=== PATIENT | male | born 1945 | race Caucasian/White ===

== ENCOUNTER → 2016-06-27 | Outpatient (CLI) | payer OTHER ==
[~2016-06-27] MED LIST: ASPEC325 PO; LSN/10125 PO; NAPR1TAB9 PO; SILD100T PO
[2016-06-27 12:09] LABS: HEMATOCRIT 47.8 % (42-52); MEAN CORPUSCULAR HEMOGLOBIN 31.5 pg (25-34); MEAN CORPUSCULAR HGB CONC 34.9 g/dl (32-36); MEAN PLATELET VOLUME 10.2 fL (7.4-10.4); PLATELET COUNT 318 K/uL (130-400); RED BLOOD COUNT 5.31 M/uL (4.7-6.1); WHITE BLOOD COUNT 9.38 K/uL (4.8-10.8)
[2016-06-27 12:39] LABS: ALT/SGPT 19 U/L (12-78); BLOOD UREA NITROGEN 23 mg/dl (7-18); BUN/CREATININE RATIO 14.1 (10-20); CALCIUM 8.9 mg/dl (8.5-10.1); CARBON DIOXIDE 27 mmol/L (21-32); CHLORIDE 104 mmol/L (98-107); GLUCOSE 82 mg/dl (70-99); POTASSIUM 4.4 mmol/L (3.5-5.1); SODIUM 138 mmol/L (136-145)
[2016-06-27 12:47] LABS: CHOLESTEROL 208 mg/dl (0-200); HDL CHOLESTEROL 42 mg/dl; LDL CHOLESTEROL CALCULATED 138 mg/dl; TRIGLYCERIDES 138 mg/dl (0-150); VERY LOW DENSITY LIPOPROT CALC 28 mg/dl
== END | disposition home or self-care (01) ==
LOC: C.LAB 11:15
PROVIDERS: ATTEND Family Medicine
DX: I10 Essential (primary) hypertension (principal); E78.5 Hyperlipidemia, unspecified; Z12.5 Encounter for screening for malignant neoplasm of prostate

== ENCOUNTER → 2017-06-28 | Day surgery (SDC) | payer OTHER ==
[2017-06-26 11:21] VITALS: Ht 190.5 cm; Wt 102.3 kg
[~2017-06-28] VITALS: Ht 190.5 cm; Wt 102.3 kg
[~2017-06-28] MED LIST changes: -ASPEC325 PO; +LIDOCAINE HCL 2% 2 ML VIAL (20MG/ML) ONE; +MIDAZOLAM HCL 1 MG/ML 2ML VIAL ONE; -NAPR1TAB9 PO; +PROPOFOL IV EMULSION 10 MG/ML 20 ML VIAL IV ONE; -SILD100T PO; +SODIUM CHLORIDE 0.9% 500ML 500 ML IV ONE
--- NOTE | 2017-06-28 10:51 | Endo History and Physical ---
History & Physical Date of Service: Jun 28, 2017. Chief Complaint: history of polyps Referring Physician: Dr. Bharath Carrillo History of Present Illness Surveillance colonoscopy Past Medical History Fractures, Hypertension Past Surgical History Hx Cardiac Surgery: No Hx Internal Defibrillator: No Hx Pacemaker: No Hx Abdominal Surgery: No Hx Post-Op Nausea and Vomiting: No Hx Cancer Surgery: No Hx Thoracic Surgery: No Hx Orthopedic: Yes (LEFT KNEE SURGERY, LEFT TKA) Hx Urinary Tract Surgery: No Family History None Social History Smoking Status: Former Smoker Hx Substance Use: No Hx Alcohol Use: Yes (5 DRINKS/WEEK) Allergies Coded Allergies: No Known Allergies (Verified , 06/28/17) Current Medications Reported Home Medications Medications Dose Route/Sig Max Daily Dose Days Date Category Lisinopril/Hctz 10/12.5 Mg (HCTZ/Lisinopril) 1 Ea Tab 1 Tab PO HS 12/17/13 Reported Vital Signs Weight (Kilograms): 102.27 Height (Feet): 6 Height (Inches): 3 Date Time Temp Pulse Resp B/P (MAP) Pulse Ox O2 Delivery O2 Flow Rate FiO2 06/28/17 09:53 36.5 87 18 126/78 (94) 95 Room Air Physical Exam General Appearance: WD/WN, no apparent distress Respiratory/Chest: Auscultation: breath sounds normal, no wheezing Cardiovascular: Heart Auscultation: RRR, no murmurs Assessment and Plan Colonoscopy today.
--- NOTE | 2017-06-28 11:22 | GI REPORT ---
Procedure Date: 06/28/2017 10:52 AM Procedure: Colonoscopy Indications: High risk colon cancer surveillance: Personal history of colonic polyps Medicines: Monitored Anesthesia Care Complications: No immediate complications. Estimated blood loss: None. Estimated Blood Loss: Estimated blood loss: none. Procedure: Pre-Anesthesia Assessment: - Prior to the procedure, a History and Physical was performed, and patient medications, allergies and sensitivities were reviewed. The patient's tolerance of previous anesthesia was reviewed. - ASA Grade Assessment: II - A patient with mild systemic disease. After I obtained informed consent, the scope was passed under direct vision. Throughout the procedure, the patient's blood pressure, pulse, and oxygen saturations were monitored continuously. The scope was introduced through the anus and advanced to the terminal ileum, with identification of the appendiceal orifice and IC valve. The colonoscopy was performed with ease. The patient tolerated the procedure well. The quality of the bowel preparation was good. The bowel preparation used was split dose MIralax. Findings: Multiple diverticula were found in the left colon. Internal hemorrhoids were found during retroflexion. Impression: - Diverticulosis in the left colon. - Internal hemorrhoids. - No specimens collected. - The colon was otherwise normal to the terminal ileum with retroflexed views of the ascending colon and rectum. Recommendation: - Repeat colonoscopy in 5 years for screening purposes. - Discharge patient to home (with escort). Javid Garrett M.D. Javid Garrett MD 06/28/2017 11:22:19 AM This report has been signed electronically. Note Initiated On: 06/28/2017 10:52 AM I attest to the content of the Intraoperative Record and orders documented therein, exceptions below
--- NOTE | 2017-06-28 11:23 | Discharge Instructions ---
Endoscopy Patient Instructions Date / Procedure(s) Performed Jun 28, 2017. Colonoscopy Allergy Information Coded Allergies: No Known Allergies (Verified , 06/28/17) Discharge Date / Findings Jun 28, 2017. Diverticulosis, internal hemorrhoids Medication Instructions Restart Stopped Medication(s): Restart all medications today. Provider Instructions Activity Restrictions - No exercising or heavy lifting for 24 hours. - Do not drink alcohol the day of the procedure. - Do not drive a car or operate machinery until the day after the procedure. - Do not make any important decisions or sign important papers in 24 hours after the procedure. Following Day: - Return to full activity which may include returning to work/school. Diet Start your diet with liquids and light foods (jello, soup, juice, toast). Then eat your usual diet if not nauseated. Treatment For Common After Affects For mild abdominal pain, bloating, or excessive gas: - Rest - Eat lightly - Lie on right side Follow-Up Information Follow-up with Dr. Bharath Carrillo as scheduled Repeat colonoscopy in five years. Anesthesia Information What You Should Know You have had a procedure that required some medicine to reduce anxiety and discomfort. This treatment is called moderate sedation. After receiving the treatment, you may be sleepy, but you will be able to breathe on your own. The effects of the treatment may last for several hours. Follow these instructions along with Activity/Diet recommendations noted above: * Do NOT do anything where dizziness or clumsiness would be dangerous. * Rest quietly at home today, then you can be up and about tomorrow. * Have a responsible person stay with you the rest of today. * You may have had an I.V. today. If so, you may take the dressing off later today. Recommendations Call your doctor if: * Trouble breathing * Continuous vomiting for more than 24 hours * Temperature above 101 degrees * Severe abdominal pain or bloating * Pain not relieved by pain medicine ordered * There is increased drainage or redness from any incision * A large amount of rectal bleeding greater than 2-3 tablespoons. (If you had a polyp/s removed or have hemorrhoids, a small amount of blood - from the rectum is to be expected.) * You have any unanswered questions or concerns. IN THE EVENT OF A SERIOUS EMERGENCY, GO TO THE NEAREST EMERGENCY ROOM Your discharge instructions were prepared by provider Javid L Tami. Patient Instructions Signature Page Medardo Marcelo Patient (or Guardian) Signature/Date: I have read and understand the instructions given to me by my caregivers. Caregiver/RN/Doctor Signature/Date: The above-named patient and/or guardian has received patient instructions on this date. + Original Patient Signature Page (only) stays with chart. Please make copy for patient.
[2017-06-28 11:54] VITALS: BP 144/66; PULSE 77; O2SAT 97
--- NOTE | 2017-06-28 12:12 | Anesthesiology Progress Note ---
Anesthesia Post Op Note Date & Time Jun 28, 2017 at 12:12 Vital Signs Pain Intensity: 0 Vital Signs Past 12 Hours Date Time Temp Pulse Resp B/P (MAP) Pulse Ox O2 Delivery O2 Flow Rate FiO2 06/28/17 11:54 77 16 144/66 (92) 97 Room Air 06/28/17 11:39 81 18 116/64 (81) 96 Room Air 06/28/17 11:22 82 18 113/70 (84) 96 Room Air 06/28/17 09:53 36.5 87 18 126/78 (94) 95 Room Air Notes Mental Status: alert / awake / arousable, participated in evaluation Pt Amnestic to Procedure: Yes Nausea / Vomiting: adequately controlled Pain: adequately controlled Airway Patency, RR, SpO2: stable & adequate BP & HR: stable & adequate Hydration State: stable & adequate Anesthetic Complications: no major complications apparent
== END | disposition home or self-care (01) ==
LOC: C.GI 09:32
PROVIDERS: ATTEND Internal Medicine Gastroenterology
DX: Z12.11 Encounter for screening for malignant neoplasm of colon (principal); K57.30 Diverticulosis of large intestine without perforation or abscess without bleeding; K64.8 Other hemorrhoids; Z86.010 Personal history of colon polyps; I10 Essential (primary) hypertension; M19.90 Unspecified osteoarthritis, unspecified site; Z96.652 Presence of left artificial knee joint; Z87.891 Personal history of nicotine dependence; Z90.89 Acquired absence of other organs

== ENCOUNTER 2021-08-17 08:41 | Observation (INO) ==
--- NOTE | 2021-08-12 16:24 | Anesthesiology Consultation ---
Date of Service August 12, 2021 Assessment & Plan (1) Encounter for pre-operative examination: COVID screening: Per assessment on 08/12: No known COVID-19 positive contacts or current COVID-19 related symptoms. Travel screen negative. Surgeon arranging preop COVID testing. Awaiting results. Chart Review Chart Review: Acceptable Risk for Surgery and Patient NOT seen in Pre Admission Testing History Surgery Operation Date: 08/17/21 08:50 Proposed Procedures p Left Total Knee Revision - Alex Cordova MD Height/Weight Height: 6 ft 1 in Weight: 95.254 kg Allergies Allergy/AdvReac Type Severity Reaction Status Date / Time amoxicillin AdvReac Nausea Verified 08/12/21 13:52 Medications Home Medications Medication Instructions Recorded Confirmed Last Taken acetaminophen 325 mg capsule 325 mg PO QID PRN 07/08/19 08/12/21 Unknown lisinopril 5 mg tablet 5 mg PO QPM 12/29/20 08/12/21 Unknown Past Medical History Medical History Chronic back pain CKD (chronic kidney disease) Stage III, baseline creatinine 1.5-1.7 per [facility] records chart review Hearing deficit Hyperlipidemia Hypertension Osteoarthritis Past Family History Family History Other Heart disease Past Surgical History Surgical History (Updated 08/12/21 @ 13:54 by Valorie Key, RN) History of colonoscopy w/ polypectomy History of surgery Decompression ulnar nerve cubital tunnel, right elbow (03/06/18): LMA#5 attempt x1, atraumatic History of tonsillectomy History of tooth extraction History of total knee replacement Left TKA (01/28/14): SAB x1 attempt (at L3/L4) + PNB at [facility] S/P epidural steroid injection Social History Smoking Status: Never smoker Do You Dip or Chew Tobacco: No Hx Alcohol Use: Yes Alcohol type: wine alcohol intake frequency: holidays/special occasions only Hx Substance Use: No substance use type: does not use Lab Results Anesthesia Preop Results Results Anesthesia Widget: WBC 7.39 K/uL (4.8-10.8) 07/05/21 Hgb 16.3 g/dL (14.0-18.0) 07/05/21 Hct 49.6 % (42-52) 07/05/21 Plt 362 K/uL (130-400) 07/05/21 Na 140 mmol/L (136-145) 07/05/21 K 4.4 mmol/L (3.5-5.1) 07/05/21 Cl 104 mmol/L (98-107) 07/05/21 CO2 29 mmol/L (21-32) 07/05/21 BUN 21 mg/dl (6-23) 07/05/21 Creat 1.41 mg/dl (0.6-1.4) H 07/05/21 Glucose Level 77 mg/dl (70-99(Fasting)) 07/05/21 PT 10.9 Seconds (9.0-12.0) 07/05/21 INR 1.0 (0.9-1.1) 07/05/21 Blood Type A Negative 07/05/21 Antibody Screen NEGATIVE 07/05/21 Testing Electrocardiogram Date: 01/12/21 NSR at 78bpm. Chest X-Ray Date: 01/12/21 Findings:+ NAD
[~2021-08-17 08:41] MED LIST changes: +ACETAMINOPHEN 500 MG TAB PO SCH; +BUPIVACAINE 0.25% 30 ML VIAL ONE; +BUPIVACAINE 0.5 % 5 MG/1 ML PF 10ML VIAL ONE; +BUPIVACAINE LIPOSOME/PF 266 MG, BUPIVACAINE/EPINEPHRINE 50 ML, SODIUM CHLORIDE 0.9% 30 ... INFIL SCH; +DEXAMETHASONE SOD INJ 4 MG/ML VIAL ONE; +EPINEPHrine INJ 1 MG/ML AMP ONE; +FAMOTIDINE 20 MG TAB PO SCH; +GABAPENTIN 300 MG CAP PO SCH; -LIDOCAINE HCL 2% 2 ML VIAL (20MG/ML) ONE; +LR 500ML BOLUS, THEN 15ML/HR IV SCH; +LR 60ML/HR IV SCH; -LSN/10125 PO; +METOCLOPRAMIDE HCL 10 MG TABLET PO SCH; -MIDAZOLAM HCL 1 MG/ML 2ML VIAL ONE; -PROPOFOL IV EMULSION 10 MG/ML 20 ML VIAL IV ONE; -SODIUM CHLORIDE 0.9% 500ML 500 ML IV ONE; +TRANEXAMIC ACID 1,000 MG **IV Intra-op IV SCH; +ceFAZolin 2000MG 2,000 MG/15 ML SYR IV SCH
--- NOTE | 2021-08-17 08:55 | History & Physical Bridge Note ---
Date of Service August 17, 2021 History & Physical Bridge Note I have examined the patient, reviewed the History & Physical and in the interval since the performance of the History & Physical I have noted the following changes of clinical significance: no changes noted
[2021-08-17] MEDS ORDERED: MIDAZOLAM HCL 1 MG/ML 2ML VIAL ONE (09:32)
[2021-08-17] MEDS ORDERED: fentaNYL citrate 100 MCG/2 ML VIAL ONE (09:32)
[2021-08-17] MEDS ORDERED: KETAMINE 50 MG/5 ML SYRINGE ONE (09:32)
[2021-08-17] MEDS ORDERED: DEXAMETHASONE SOD INJ 4 MG/ML VIAL ONE (10:19)
[2021-08-17] MEDS ORDERED: LIDOCAINE 2% 2 ML VIAL/AMP(20MG/ML) INFIL ONE (10:19)
[2021-08-17] MEDS ORDERED: PROPOFOL IV EMULSION 10 MG/ML 20 ML VIAL IV ONE (10:19)
[2021-08-17] MEDS ORDERED: KETOROLAC 30 MG/ML VIAL ONE (10:19)
[2021-08-17] MEDS ORDERED: ONDANSETRON INJ 2 MG/ML 2 ML VIAL ONE (10:19)
[2021-08-17] MEDS ORDERED: GLYCOPYRROLATE 0.2 MG/ML VIAL ONE (10:19)
[2021-08-17] MEDS ORDERED: SODIUM CHLORIDE 0.9% PF 50 ML VIAL ONE (10:44)
[2021-08-17] MEDS ORDERED: BUPIVACAINE/EPINEPHRINE 0.25% 1:200,000 30 ML VIAL ONE (10:44)
[2021-08-17] MEDS ORDERED: BUPIVACAINE LIPOSOME 1.3% 266 MG/20 ML VIAL ONE (10:44)
[2021-08-17] MEDS ORDERED: VANCOMYCIN HCL 1000MG/20ML VIAL ONE ×2 (11:08→11:11)
--- NOTE | 2021-08-17 13:47 | Operative Report ---
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 He had some mild synovitis. He had obvious loosening of the femoral component. The tibial component and the patella component looks to be well preserved without significant polywear or signs of looseness or significant osteolysis. There was moderate osteolysis of the distal femur. Fluids 1500 cc Specimens Left knee synovium sent for frozen section which revealed 0 polys per high-power field. Joint fluid sent for stat gram stain aerobic and anaerobic culture. Anesthesia Type Spinal MAC Complications none Disposition Accompanied Patient To Recovery: No Indications Patient is 75-year-old very active gentleman who is now about 7 and half years out from left knee replacement. He did well for the first 5 years and then injured his knee when he fell off a tractor and twisted his knee. He said recurrent swelling ever since. Was diagnosed with a loose femoral component. He had 3 extensive infectious work-ups which were all negative. He is putting up with this over the past several years but is now decided to have this fixed. He was scheduled previously and canceled due to the COVID epidemic. Description of Procedure Operative implants consist of: 1. Biomet Vanguard III 60 size 70 left posterior stabilized femoral component with a 21 x 80 mm offset stem with a 2.5 mm offset along with a 5 mm distal medial augment and a 5 mm posterior lateral augment. The patient was taken to the operating, identified, and placed on the operating table supine position protectors were properly padded. IV antibiotics tried by anesthesia team. A spinal anesthetic of been implemented holding area. Brooks cath was placed in sterile fashion the left atrium was then placed in the left lower extremities then prepped and draped in usual sterile fashion. The left leg was elevated exsanguinated with use of an Esmarch and tourniquet placed at 300 mmHg. An anterior posterior left knee was then performed to longitudinal incision made using the previous incision site. Sharp dissection was carried through subcutaneous tissue down to the extensor mechanism. A medial parapatellar arthrotomy incision was made. Subperiosteal dissection was carried out medially. I suprapatellar pouch and medial lateral gutter synovectomy was then performed. The synovium was sent for pathology which revealed 0 polys per high-power field. We also sent some fluid for stat gram stain aerobic anaerobic culture. The patella was subluxated laterally the knee was flexed. I then examined the tibial component was well fixed. We did remove the tibial polyethylene. I then examined the femoral component it was grossly loose. I took an osteotome and tapped it off. I examined the knee and no felt the tibia was well fixed along with the patella and we would just proceed with femoral revision. The distal femur was then with a sharp drop with intramedullary canal was suction. We reamed up to a size 21. The distal femoral cutting guide was placed at 5 degrees. It was pinned in place. We took a 1 mm cut off laterally and a 5 mm cut off medially. I sized the knee to a size 70. The AP cutting block was then used with the intramedullary stem in place with a 2.5 mm offset. Was pinned in place. The anterior cut, anterior chamfer, posterior cuts, posterior chamfer cuts were made. The box cutting guide was then placed and the box cut was made. I then cut for the posterior lateral augment of 5 mm. The implant was then assembled.. Trial implant was placed and fit quite nicely. We then trialed the knee and the 14 mm insert fit most appropriately. Attention drawn to place the permanent components. All trial components were removed. I irrigated the wound extensively. We spent quite a bit of time cleaning up the distal femur and curetting any soft tissue out of the bone. A double batch Palacos G cement was mixed with an additional gram of vancomycin. The femoral component was then placed cement into the metaphysis along with the surface. Once the cement hardened the final cement check was then performed. We then changed out the temporary poly for the permanent 14 mm polyethylene. Attention drawn towards closing. The wound was irrigated With Pulsatile Lavage Solution. I Did Inject Locally with 100 Cc of Combination of 20 Cc of Exparel, 30 Cc Normal Saline, 50 Cc of Quarter Percent Marcaine with Epinephrine. Patient Did Receive 1 G Tranexamic Acid. The Tourniquet Was Then Let down for Final Tourniquet Time 95 Minutes. Hemostasis Reduced Electrocautery. Extensor Mechanism Closed with Combination 1 PDS Suture #1 Vicryl Suture in a [id number] Fashion. Extensor Mechanism Checked to Be Intact with the Subcutaneous Tissues Then Closed with 2 Dexon Suture in a Buried Interrupted Fashion Skin Was Closed Skin Katheryn. Leg Was Then Cleaned and Dried and a Sterile Dressing with Xeroform, 4 Fours, Sterile Cast Padding, Tony Bandage Were Applied. The Patient Then Transferred to the Recovery Room in Stable Condition. Patient Tolerated Procedure Well and There Were No Complications. Chester Jaramillo, my physician commercial assistant, was present for the entire procedure. His assistance was essential and required for appropriate patient positioning, prepping and draping, surgical exposure, performing the technical details of the operation, placement the implants, closure of the wound, and placement of the sterile bandage. I attest to the content of the Intraoperative Record and any orders documented therein. Any exceptions are noted below.
[2021-08-17] MEDS ORDERED: METOCLOPRAMIDE HCL INJ 5 MG/ML 2 ML VIAL IV PRN (14:44)
[2021-08-17] MEDS ORDERED: ONDANSETRON INJ 2 MG/ML 2 ML VIAL IV PRN (14:44)
[2021-08-17] MEDS ORDERED: ALUMINUM/MAGNESIUM SUSP 30 ML UDC PO PRN (14:44)
[2021-08-17] MEDS ORDERED: HYDROmorphone INJ 0.5 MG/0.5 ML SYR IV PRN (14:44)
[2021-08-17] MEDS ORDERED: MAGNESIUM HYDROXIDE SUSP 30 ML UDC PO PRN (14:44)
[2021-08-17] MEDS ORDERED: bisacodyL 10 MG SUPP PR PRN (14:44)
[2021-08-17] MEDS ORDERED: NALOXONE HCL 0.4 MG/1 ML VIAL/CARP IV PRN (14:44)
--- NOTE | 2021-08-17 14:54 | XRay Report ---
XR knee LT 1 or 2V routine HISTORY: 75 years-old Male Surgical Post Op left knee total joint arthroplasty COMPARISON: Knee radiographs 07/29/2021 TECHNIQUE: 2 views of the left knee FINDINGS: Total joint arthroplasty with patellar resurfacing. Anterior midline skin austen are noted along wit h expected postoperative soft tissue swelling and deep tissue air. No acute fracture or unexpected op aque foreign body. IMPRESSION: Left knee total joint arthroplasty with expected postoperative changes. ACT 112: Negative or not required by law. The above report was generated using voice recognition software. It may contain grammatical, syntax o r spelling errors. Electronically signed by: Sean Wilkinson M.D. 08/17/2021 2:53 PM
[2021-08-17] MEDS: SODIUM CHLORIDE 0.9% 1000ML 1,000 ML IV SCH ×2 (15:06→23:57)
[2021-08-17] MEDS: ACETAMINOPHEN 500 MG TAB PO SCH ×2 (15:09→22:04)
--- NOTE | 2021-08-17 15:57 | Anesthesiology Progress Note ---
Date of Service August 17, 2021 Anesthesia Post Procedure Vital Signs Vital Signs: Temp Pulse Resp BP Pulse Ox 08/17/21 15:40 72 16 104/64 98 08/17/21 15:10 36.3 C L 78 16 108/61 96 08/17/21 14:40 36.4 C L 70 16 99/61 L 94 08/17/21 14:25 75 16 95/59 L 95 08/17/21 14:15 36.2 C L 82 19 103/60 96 08/17/21 14:05 73 18 97/65 L 96 08/17/21 13:55 87 18 96/50 L 96 08/17/21 13:45 92 H 16 115/58 L 92 08/17/21 13:35 36.6 C 100 H 18 112/55 L 96 08/17/21 09:17 36.3 C L 89 18 131/79 97 Transfer of Care Handoff Completed per policy Notes Mental Status: alert / awake / arousable Patient Amnestic to Procedure: Yes Nausea / Vomiting: adequately controlled Pain: adequately controlled Airway Patency, RR, SpO2: stable & adequate BP & HR: stable & adequate Hydration State: stable & adequate Anesthetic Complications: no major complications apparent
[2021-08-17] MEDS: ASCORBIC ACID 500 MG TAB PO SCH (16:24)
[2021-08-17] MEDS ORDERED: TRANEXAMIC ACID / 0.7% NACL 1,000 MG/100 ML BAG IV SCH (19:45)
[2021-08-17] MEDS ORDERED: lisinopril 5 MG TAB PO SCH (21:00)
[2021-08-17] MEDS ORDERED: SENNA 8.6 MG TAB PO SCH (21:00)
[2021-08-17] MEDS: ceFAZolin 2000MG 2,000 MG/15 ML SYR IV SCH (21:26)
[2021-08-17] MEDS: ASPIRIN 81 MG ECTAB PO SCH (21:36)
[2021-08-17] MEDS: DOCUSATE SODIUM 100 MG CAP PO SCH ×2 (21:36→22:06)
[2021-08-17] MEDS: oxyCODONE HCL IR 5 MG TAB (IMMEDIATE RELEASE) PO PRN (22:03)
[2021-08-18] MEDS: ceFAZolin 2000MG 2,000 MG/15 ML SYR IV SCH (03:12)
[2021-08-18] MEDS: ACETAMINOPHEN 500 MG TAB PO SCH ×2 (05:32→13:50)
[2021-08-18 05:57] LABS: Hematocrit (blood only) 41.1 % (42-52); Hemoglobin 13.4 g/dL (14.0-18.0); Mean Corpuscular Hemoglobin 31.2 pg (25-34); Mean Corpuscular Hgb Conc 32.6 g/dL (32-36); Mean Corpuscular Volume 95.6 fL (80-100); Mean Platelet Volume 9.8 fL (7.4-10.4); Platelet Count 308 K/uL (130-400); RDW Standard Deviation 45.2 fL (36.4-46.3); White Blood Count 16.25 K/uL (4.8-10.8)
[2021-08-18 06:29] LABS: BUN Creatinine Ratio 18.3 (10-20); Creatinine Clr Calc Pharmacy 57.3 ml/min; Est GFR (African American) 56.4 ml/min; Est GFR (Non-African American) 48.7 ml/min; Potassium 4.9 mmol/L (3.5-5.1)
[2021-08-18] MEDS: DOCUSATE SODIUM 100 MG CAP PO SCH (07:51)
[2021-08-18] MEDS: ASCORBIC ACID 500 MG TAB PO SCH (07:51)
[2021-08-18] MEDS: ASPIRIN 81 MG ECTAB PO SCH (07:51)
[2021-08-18] MEDS ORDERED: dexAMETHasone 10 MG in SYRINGE 0 ML IV SCH (08:00)
[2021-08-18] MEDS ORDERED: DOCUSATE SODIUM/SENNA 50/8.6MG TAB PO SCH (09:00)
[2021-08-18] MEDS ORDERED: TAMSULOSIN HCL 0.4 MG CAP PO SCH (09:00)
[2021-08-18] MEDS ORDERED: MULTIVITAMIN TAB PO SCH (09:00)
[2021-08-18] MEDS: oxyCODONE HCL IR 5 MG TAB (IMMEDIATE RELEASE) PO PRN (10:12)
--- NOTE | 2021-08-18 15:34 | Progress Notes ---
DATE OF SERVICE: 08/18/2021. SUBJECTIVE: A 75-year-old gentleman now postoperative day 1 from revision of an aseptic loosening of a total knee replacement. He is doing quite well. Did well in therapy. Pain is controlled. No ch est pain or shortness of breath. Not feeling dizzy or lightheaded. Hoping to go home. OBJECTIVE: VITAL SIGNS: Temperature is 36.6. Vital signs are stable. PHYSICAL EXAMINATION: GENERAL: Shows a pleasant middle-aged male. He is sitting up in bed, just watching a baseball game. LUNGS: Clear to auscultation. HEART: Regular rate and rhythm. ABDOMEN: Soft, nontender, nondistended. EXTREMITIES: Grossly neurovascularly intact except as follows: Examination of the left leg reveals the dressing to be intact. It has been reinforced. He can do a good straight leg raise. He can fani siflex and plantarflex his foot appropriately. NEUROLOGIC: He is neurologically intact. LABORATORY DATA: Hemoglobin 13.4. Hematocrit 41.1. Electrolytes are stable. Culture results are no growth to date. ASSESSMENT: A 75-year-old gentleman, postoperative day 1 from a left total knee revision of the femo ral component for aseptic loosening. He is doing well. He is neurologically intact. PLAN: 1. DVT prophylaxis includes thigh-high TEDs, SCDs, and aspirin twice a day. 2. PT, OT, weightbear as tolerated. Left total knee protocol. 3. Pain control, doing well with current pain regimen. 4. Disposition: Plan to discharge to home with some home health later today. Job ID: [id number]
--- NOTE | 2021-08-21 10:53 | Discharge Summary ---
Date of Service August 21, 2021 Discharge Data Procedures Performed Operation Date: 08/17/21 10:40 Actual Procedures p Left Total Knee Revision(Left) - Alex Cordova MD Hospital Course (1) Status post revision of total replacement of left knee: This patient is a 75 year old admitted on 08/17/21 and underwent revision of the femoral component. He tolerated the procedure well and there were no complications. Transferred to the PACU post op and later to the orthopedic floor for further care. He was given ancef for antibiotic prophylaxis. He was also given MIGEL stockings, SCDs, and aspirin for DVT prophylaxis. Hemoglobin, hematocrit, and vital signs were monitored during his hospital stay and remained stable. Did not require any blood transfusions. There were no complications during his hospital stay. By post op day #1 the patient was tolerating a regular diet, pain was reasonably controlled with oral pain medicine, and he was participating in physical therapy. On post op day #1 the patient was discharged home and set up with home health care. He was given printed discharge instructions including prescriptions for extra strength tylenol, aspirin, cefadroxil, toradol, and oxycodone. Continue physical therapy, weight bearing as tolerated. Continue MIGEL stockings. Follow up approximately 2 weeks post op or sooner if there are problems or concerns. Coding Level of Care Code None Diagnoses Status post revision of total replacement of left knee Z96.652
== END 2021-08-18 17:28 | disposition home health service (06) ==
LOC: ASU 08:41 → 3E 08:41
DX: T84.038A Mechanical loosening of other internal prosthetic joint, initial encounter; M65.88 Other synovitis and tenosynovitis, other site